=== PATIENT | male | born 1970 | race Caucasian/White ===

== ENCOUNTER 2017-08-05 07:29 | Observation (INO) | payer OTHER ==
[~2017-08-05] VITALS: Ht 185.4 cm; Wt 109.9 kg
[~2017-08-05 07:29] MED LIST: ASPIR-TRIN325 M1 PO; ASPIRIN BUFFER325 MG PO; DICLOFENAC SOD100 MG PO; DILAUDID2 MG PO; ENDOCET 5-3251 EACH PO; LEVOFLOXACIN500 MG PO; NAPROSYN500 MG PO; NOHOMEMEDS; PYRIDIUM200 MG PO; XARELTO15 MG PO
[2017-08-05 08:44] LABS: HEMATOCRIT 48.3 % (38.0-50.0); HEMOGLOBIN 16.6 G/DL (12.5-16.6); MCH 33.7 PG (29.0-34.0); MCHC 34.4 G/DL (30.0-36.0); PLATELET COUNT 215 K/uL (156-360); RBC DIS.WIDTH-CV 11.9 % (11.8-14.6); RBC DIS.WIDTH-SD 43.2 % (39-53); RED BLOOD COUNT 4.93 M/uL (4.00-5.50); WHITE BLOOD COUNT 6.3 K/uL (4.1-10.2)
[2017-08-05 08:54] LABS: CHLORIDE 108 mEq/L (99-109); POTASSIUM 4.3 mEq/L (3.7-5.4); SODIUM 141 mEq/L (136-147)
[2017-08-05 08:56] LABS: TOTAL PROTEIN 7.1 g/dL (6.4-8.3)
[2017-08-05 08:58] LABS: GLUCOSE 99 mg/dL (70-99)
[2017-08-05 09:01] LABS: APPEARANCE CLEAR ((CLEAR)); BILIRUBIN NEGATIVE; BLOOD SMALL; COLOR YELLOW ((YELLOW)); GLUCOSE (STRIP) NEGATIVE; KETONES NEGATIVE; LEUKOCYTES NEGATIVE; NITRITE NEGATIVE; PROTEIN (STRIP) NEGATIVE; UROBILINOGEN 0.2 MG/DL (0.2-1.0)
[2017-08-05 09:02] LABS: AST (GOT) 27 IU/L (2-34); UREA NITROGEN (BUN) 14 mg/dL (9-23)
[2017-08-05 09:02] LABS: BACTERIA NONE SEEN /HPF; EPITHELIAL CELLS NONE SEEN /HPF; MUCUS TRACE /LPF; RED BLOOD CELLS 0-5 /HPF (0-5); WHITE BLOOD CELLS 0-5 /HPF (0-5)
[2017-08-05 09:04] LABS: ALT (GPT) 43 IU/L (3-49)
[2017-08-05 09:16] LABS: ALKALINE PHOSPHATASE 93 IU/L (3-129); TOTAL BILIRUBIN 0.5 mg/dL (0.0-1.0)
[2017-08-05 09:17] LABS: CREATININE 0.9 mg/dL (0.6-1.3); GFR ESTIMATE (CALCULATED) > 59 mL/min/ (58.99-99999)
[2017-08-05] MEDS ORDERED: ANTIVERT25 MG PO (12:42)
[2017-08-05] MEDS ORDERED: VALIUM5 MG PO (12:43)
[2017-08-05 14:28] VITALS: BP 134/80
[2017-08-05 19:45] VITALS: BP 115/76
[2017-08-06] VITALS: BP 123/74
[2017-08-06 04:00] VITALS: BP 120/72
[2017-08-06 06:27] LABS: HEMATOCRIT 50.8 % (38.0-50.0); HEMOGLOBIN 16.7 G/DL (12.5-16.6); MCH 32.9 PG (29.0-34.0); MCHC 32.9 G/DL (30.0-36.0); MCV 100.2 FL (86-99); PLATELET COUNT 228 K/uL (156-360); RBC DIS.WIDTH-SD 44.7 % (39-53); RED BLOOD COUNT 5.07 M/uL (4.00-5.50); WHITE BLOOD COUNT 6.4 K/uL (4.1-10.2)
[2017-08-06 06:51] LABS: CHLORIDE 105 MEQ/L (99-109); GFR ESTIMATE (CALCULATED) > 59 mL/min/ (58.99-99999); GLUCOSE 110 mg/dL (70-99); SODIUM 142 MEQ/L (136-147); UREA NITROGEN (BUN) 14 mg/dL (9-23)
[2017-08-06 08:15] VITALS: BP 125/75
[2017-08-06 11:56] LABS: CSF PROTEIN 77 mg/dL (15-45)
[2017-08-06 12:00] VITALS: BP 137/82
[2017-08-06 12:01] LABS: GLUCOSE, CSF 69 mg/dL (40-80)
[2017-08-06 12:22] LABS: APPEARANCE CLEAR/COLORLESS; CSF TUBE NUMBER TUBE #3; RED CELL COUNT 0 /MM^3 (0-1); WHITE CELL COUNT 5 /MM^3 (0-5)
[2017-08-06 12:23] LABS: CSF EOSINOPHILS 0 % (0-25); MONONUCLEAR WBC'S 100 % (50-90); POLYNUCLEAR WBC'S 0 % (0-3)
[2017-08-06 15:07] VITALS: BP 122/81
== END 2017-08-06 16:10 | disposition home or self-care (01) ==
LOC: EME 07:29 → EDOF 11:58 → 5WEST 11:58 → EDOF 11:58 → ENRESERV 12:05 → EDOF 12:36 → 5WEST 13:50 → ENPENDDIS 08-06 15:59 → 5WEST 08-06 16:10
PROVIDERS: Hospitalist; Nurse Practitioner Family
PROC: 009U3ZX Drainage of Spinal Canal, Percutaneous Approach, Diagnostic (ICD-10-PCS; principal; 2017-08-06)
DX: R42 Dizziness and giddiness (principal); R90.89 Other abnormal findings on diagnostic imaging of central nervous system; R26.2 Difficulty in walking, not elsewhere classified; Z86.19 Personal history of other infectious and parasitic diseases; Z82.49 Family history of ischemic heart disease and other diseases of the circulatory system; Z83.49 Family history of other endocrine, nutritional and metabolic diseases
CPT/HCPCS: 70496; 70498; 70553; 72156; 80048; 80053; 81003; 82945; 83873 90; 83916 90; 84157; 85027; 87205; 89051; 93005; 99281; 99285; G0378; G8978 GP CH; G8979 GP CH; G8980 GP CH